=== PATIENT | male | born 1975 | race Caucasian/White ===

== ENCOUNTER 2018-07-24 08:21 | Emergency (ER) | payer OTHER ==
[2018-07-24 08:33] VITALS: BP 153/93
--- NOTE | 2018-07-24 09:36 | XRAY Report ---
Reason: 5th digit injury Procedure Date: 07/24/2018 Accession Number: [id number] / [id number] Procedure: XR - Hand 3 View RT CPT Code: FULL RESULT: EXAM: RIGHT HAND RADIOGRAPHY EXAM DATE: 07/24/2018 09:21 AM. CLINICAL HISTORY: Fifth digit injury. COMPARISON: None. TECHNIQUE: 3 views. FINDINGS: Bones: Normal. No fractures or bone lesions. Joints: Alcove-neck flexion deformity of the fifth digit phalanges is noted. No subluxation. Soft Tissues: Normal. No soft tissue swelling. IMPRESSION: No fracture or dislocation. Positional swan-neck deformity of the fifth ray suggestive of a ligamentous injury. RADIA
--- NOTE | 2018-07-24 09:45 | ED Physician Documentation ---
PD HPI UPPER EXT INJURY - Stated complaint Stated Complaint: R FINGER INJ - Chief complaint Chief Complaint: Ext Problem - History obtained from History obtained from: Patient - History of Present Illness Location: Right, Finger (5th) Type of injury: Blunt / blow Where injury occurred: Other (gym) Timing - onset: Last night Timing - duration: Days (1) Timing - details: Abrupt onset, Still present Improved by: Rest, Immobilization Worsened by: Moving, Palpating Associated symptoms: No: Weakness, Numbness, Tingling Contributing factors: No: Anticoagulated Similar symptoms before: Has not had sx before Recently seen: Not recently seen - Additonal information Additional information: 43-year-old male was playing basketball with his daughter last night when the basketball hit the tip of his right fifth digit and bent it. He is not able to straighten the tip of his finger out at all. He has very little pain associated with this. Review of Systems Constitutional: denies: Fever Eyes: denies: Decreased vision Respiratory: denies: Cough GI: denies: Vomiting PD PAST MEDICAL HISTORY - Past Surgical History Ortho: Other - Present Medications Home Medications: Ambulatory Orders Medication Instructions Recorded Confirmed No Known Home Medications 07/24/18 07/24/18 - Allergies Allergies/Adverse Reactions: Allergies Allergy/AdvReac Type Severity Reaction Status Date / Time No Known Drug Allergies Allergy Verified 07/24/18 08:33 - Social History Does the pt smoke?: No Smoking Status: Never smoker Does the pt drink ETOH?: No Does the pt have substance abuse?: No PD ED PE NORMAL - Vitals Vital signs reviewed: Yes (hypertensvie) - General General: Alert and oriented X 3, No acute distress, Well developed/nourished - HEENT HEENT: Atraumatic, PERRL, EOMI - Respiratory Respiratory: No respiratory distress - Derm Derm: Normal color, Warm and dry, No rash - Extremities Extremities: Other (There is deformitiy consistent with a Mallet finger to the right 5th digit. He is unable to extend the finger. There is no swelling and minimal pain with direct palpation. Distal n/v is intact. 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 Positional swan-neck deformity of the fifth digit suggestive of a ligamentous injury.), EMP read indepedently, See rad report PD MEDICAL DECISION MAKING - ED course Complexity details: reviewed results, re-evaluated patient, considered differential, d/w patient ED course: 43-year-old male with contusion to his right fifth digit has a mallet finger and we do not have the right size stack splint the patient placed the patient in and he is not encouraged to obtain this from the drugstore and wear it 14/01 for at least 1 month. Departure - Departure Disposition: 01 Home, Self Care Clinical Impression: Mallet finger of right hand Condition: Stable Instructions: ED Fx Mallet Finger Follow-Up: Ivan Garrett MD [Primary Care Provider] - [facility] [Provider Group] Comments: wear the stack splint for 6 weeks continuously.
== END 2018-07-24 10:06 | disposition home or self-care (01) ==
LOC: ED 08:21
DX: M20.011 Mallet finger of right finger(s) (principal)
CPT/HCPCS: 99282

== ENCOUNTER 2019-04-12 12:32 | Emergency (ER) | payer OTHER ==
--- NOTE | 2019-04-12 13:06 | ED Physician Documentation ---
PD HPI GI BLEED - Stated complaint Stated Complaint: BLOOD IN Stool - Chief complaint Chief Complaint: Abd Pain - History obtained from History obtained from: Patient - History of Present Illness Timing - onset: How many days ago (3-4) Timing - duration: Days (3-4) Timing - details: Abrupt onset (4 days ago noted an abrupt feeling of diarrheal type urgency and went to the bathroom and noted red blood output without any formed stool. He states he has had that happen several times daily over the last several days. He has noticed some mucus at times. He did not start with diarrhea itself but just the bloody output. He has had minimal lower abdominal cramping intermittently. No consistent pain fever nausea or vomiting. He denies rectal pain.), Still present, Intermittant Associated symptoms: Maroon stool, Abdominal pain (minimal cramping lower abd at times). No: Black/tarry stool, Diarrhea, Constipation Contributing factors: No: Sick contact, Bad food, Travel, Recent antibiotics, Aspirin use, NSAID use Improved by: No: Eating Worsened by: No: Eating Similar symptoms before: Has not had sx before Recently seen: Not recently seen Review of Systems Constitutional: denies: Fever, Chills, Myalgias Cardiac: denies: Chest pain / pressure, Palpitations Respiratory: denies: Dyspnea, Cough GI: reports: Bloody / black stool (purple/dark red blood; no rectal tenderness.). denies: Abdominal Swelling, Nausea, Vomiting, Constipation, Diarrhea Neurologic: denies: Generalized weakness, Near syncope PD PAST MEDICAL HISTORY - Past Medical History Cardiovascular: None Respiratory: None Endocrine/Autoimmune: None GI: None Other Past Medical History: G6PD - Past Surgical History Ortho: Other - Present Medications Home Medications: Ambulatory Orders Medication Instructions Recorded Confirmed Amox/Clav 875/125 [Augmentin] 1 each PO Q12H #10 tablet 04/12/19 Naproxen 375 mg PO BID #20 tablet 04/12/19 - Allergies Allergies/Adverse Reactions: Allergies Allergy/AdvReac Type Severity Reaction Status Date / Time No Known Drug Allergies Allergy Verified 04/12/19 12:38 - Social History Does the pt smoke?: No Smoking Status: Never smoker Does the pt drink ETOH?: No Does the pt have substance abuse?: No PD ED PE NORMAL - Vitals Vital signs reviewed: Yes - General General: Alert and oriented X 3, No acute distress, Well developed/nourished - Neck Neck: Supple, no meningeal sign, No adenopathy - Cardiac Cardiac: RRR, No murmur - Respiratory Respiratory: Clear bilaterally - Abdomen Abdomen: Normal bowel sounds, Soft, Non distended, No organomegaly, Other (mildly tender without guarding nor percussion tenderness in lower mid to left abdomen. ) - Back Back: No CVA TTP - Derm Derm: Normal color, Warm and dry - Neuro Neuro: Alert and oriented X 3, No motor deficit, Normal speech Results - Vitals Vitals: Vital Signs - 24 hr 04/12/19 04/12/19 12:35 15:19 Temperature 36.7 C Heart Rate 85 68 Respiratory 20 18 Rate Blood Pressure 131/85 H 121/78 O2 Saturation 98 99 Oxygen O2 Source Room air - Labs Labs: Microbiology 04/12/19 14:10 Campylobacter Antigen Assay - Final Stool Laboratory Tests 04/12/19 04/12/19 04/12/19 14:04 14:04 14:04 WBC 4.1 L RBC 4.87 Hgb 13.9 L Hct 42.3 MCV 86.9 MCH 28.5 MCHC 32.9 RDW 12.9 Plt Count 235 MPV 9.0 Neut # (Auto) 2.8 Lymph # (Auto) 1.0 L [place] # (Auto) 0.2 Eos # (Auto) 0.1 Baso # (Auto) 0.0 Absolute Nucleated RBC 0.00 Nucleated RBC % 0.0 ESR 3 Sodium 138 Potassium 4.1 Chloride 101 Carbon Dioxide 28 Anion Gap 9.0 BUN 19 Creatinine 1.2 Estimated GFR (MDRD) 65 L Glucose 101 H Calcium 9.1 Total Bilirubin 0.8 AST 17 ALT 18 Alkaline Phosphatase 41 L Total Protein 7.4 Albumin 4.7 Globulin 2.7 Albumin/Globulin Ratio 1.7 Lipase 29 - Rads (name of study) abd CT Radiology: Prelim report reviewed (diverticula present without obvious diverticulitis. No masses. ), See rad report PD MEDICAL DECISION MAKING - ED course Complexity details: reviewed results, re-evaluated patient (stable blood count. Consider mild diverrticulitis as cause. can treat that way. No overt -itis on CT. Will need colonoscopy to rule out other pathology. ), considered differential (presume lower bleed with likely diverticular. Consider tumors, polyps as well. No diarrhea preceeding, so unlikely infectious colitis. ), d/w patient, d/w home sales consultant (Dr. Wilks, who will see patient in office in next few days for follow up and colonoscopy. ) Departure - Departure Disposition: 01 Home, Self Care Clinical Impression: Lower GI bleeding, Diverticula of colon Condition: Stable Record reviewed to determine appropriate education?: Yes Instructions: ED Hematochezia Stable Follow-Up: Nas Wilks MD [Provider Admit Priv/Credential] - Ivan Garrett MD [Primary Care Provider] - Prescriptions: Amox/Clav 875/125 [Augmentin] 1 each PO Q12H #10 tablet Naproxen 375 mg PO BID #20 tablet Comments: You do have some diverticula on CT scan without any obvious diverticulitis. That said your bleeding may still be most likely from some inflammation around the diverticulum and we treated with anti-inflammatories and can go short course of an antibiotic in case of a mild infection. It would be appropriate to get a colonoscopy to ensure no other lesions or problems. No other lesions were seen on the CT scan but can be just intrinsic on the wall such as a polyp. I talked with our surgeon 's office who will follow up with you. Call his office tomorrow and let them know you are here in the ER and Dr. Tipton does want a close follow-up in the next couple of days to arrange colonoscopy. Return if significantly worse bleeding fevers pains or other concerns. Discharge Date/Time: 04/12/19 16:35
[2019-04-12] MEDS ORDERED: SODIUM CHLORIDE 0.9% 1,000 ML IV ONE (13:54)
[2019-04-12] MEDS ORDERED: IOVERSOL 320 100 ML VIAL IVP ONE ×2 (14:12→15:27)
[2019-04-12 14:20] LABS: BASOPHILS % (AUTO) 0.7 %; EOSINOPHILS # (AUTO) 0.1 10^3/uL (0.0-0.7); EOSINOPHILS % (AUTO) 1.7 %; HGB - HEMOGLOBIN 13.9 g/dL (14.0-18.0); LYMPHOCYTES % (AUTO) 24.9 %; MEAN CORPUSCULAR HEMOGLOBIN 28.5 pg (27.0-31.0); MEAN CORPUSCULAR HGB CONC 32.9 g/dL (32.0-36.0); MEAN CORPUSCULAR VOLUME 86.9 fL (80.0-94.0); MONOCYTES # (AUTO) 0.2 10^3/uL (0.0-1.0); MONOCYTES % (AUTO) 5.1 %; NEUTROPHILS # (AUTO) 2.8 10^3/uL (1.5-6.6); NEUTROPHILS % (AUTO) 67.1 %; PLT - PLATELET COUNT 235 10^3/uL (130-450); RED BLOOD COUNT 4.87 10^6/uL (4.70-6.10); RED CELL DISTRIBUTION WIDTH 12.9 % (12.0-15.0); WHITE BLOOD COUNT 4.1 x10^3/uL (4.8-10.8)
[2019-04-12 14:29] LABS: ALBUMIN 4.7 g/dL (3.2-5.5); ALBUMIN/GLOBULIN RATIO 1.7 (1.0-2.2); BILIRUBIN,TOTAL 0.8 mg/dL (0.2-1.0); CALCIUM 9.1 mg/dL (8.5-10.3); CREATININE 1.2 mg/dL (0.6-1.2); TOTAL PROTEIN 7.4 g/dL (6.7-8.2)
[2019-04-12 15:24] VITALS: BP 121/78
--- NOTE | 2019-04-12 15:40 | CT Report ---
Reason: lower GI bleedd; some lower abd tender Procedure Date: 04/12/2019 Accession Number: [id number] / [id number] Procedure: CT - Abdomen/Pelvis W CPT Code: FULL RESULT: EXAM: CT ABDOMEN AND PELVIS EXAM DATE: 04/12/2019 03:02 PM. CLINICAL HISTORY: Lower GI bleedd; some lower abd tender. COMPARISONS: None. TECHNIQUE: Routine helical CT imaging was performed through the abdomen and pelvis. IV contrast: OPTI 320 90ML. Enteric contrast: No. Reconstructions: Coronal and sagittal. In accordance with CT protocol optimization, one or more of the following dose reduction techniques were utilized for this exam: automated exposure control, adjustment of mA and/or KV based on patient size, or use of iterative reconstructive technique. FINDINGS: Lung Bases: Unremarkable. Liver: 3.3 x 3.1 cm segment 8 hypoattenuating liver lesion with suggestion of peripheral enhancement is likely a benign hemangioma. A few additional small scattered subcentimeter hypoattenuating liver lesions are seen that are indeterminate on single phase CT. Gallbladder/Bile Ducts: No radiopaque gallstones seen. No pericholecystic fluid or biliary dilation. Spleen: Normal. Pancreas: Normal. Adrenal Glands: Normal. Kidneys: Normal. No masses or hydronephrosis. Peritoneal Cavity/Bowel: Small hiatal hernia. Unremarkable stomach. Normal caliber small bowel loops without signs of wall thickening or hyperemia. No enlarged intraperitoneal or retroperitoneal lymph nodes seen. No pneumoperitoneum or ascites. No intra-abdominal fluid collections. Appendix is normal. Few scattered colonic diverticula seen without evidence for acute inflammation. Pelvic Organs: Unremarkable urinary bladder for degree of distention. Prostate and seminal vesicles appear within normal limits by CT. No enlarged pelvic or inguinal lymph nodes. Vasculature: No aneurysms or other significant abnormality. Bones: No significant abnormality. Other: Small fat-containing bilateral inguinal hernias noted. IMPRESSION: 1. No acute abnormality seen in the abdomen or pelvis. No CT findings to localize gastrointestinal bleeding. 2. Scattered colonic diverticulosis without evidence for acute diverticulitis. 3. 3.3 cm right hepatic mass is consistent with a benign hemangioma. For additional subcentimeter scattered hypoattenuating liver lesions are indeterminate, possibly small cysts or hemangiomas. Liver MRI could be obtained for additional characterization of these lesions if indicated. RADIA
[2019-04-12] MEDS ORDERED: NAPROXEN 250 MG TABLET PO STA (16:16)
[2019-04-12] MEDS: AMOX/CLAV 875 MG/125 MG TABLET PO STA (16:23)
== END 2019-04-12 16:35 | disposition home or self-care (01) ==
LOC: ED 12:32
DX: K57.31 Diverticulosis of large intestine without perforation or abscess with bleeding (principal)
CPT/HCPCS: 36415; 74177; 80053; 83690; 85025; 85651; 87045; 87046; 99283; 99284; A9270; Q9967

== ENCOUNTER 2019-07-28 12:51 | Outpatient (CLI) | payer OTHER ==
[~2019-07-28 12:51] MED LIST: GADOBUTROL 15 MMOL/15 ML VIAL ONE
[2019-07-28] MEDS ORDERED: GADOBUTROL 15 MMOL/15 ML VIAL IVP ONE (14:32)
--- NOTE | 2019-07-29 23:08 | MRI Report ---
Reason: ABNL ABD IMAGING LIVER LESIONS ON CT Procedure Date: 07/28/2019 Accession Number: [id number] / [id number] Procedure: MRI - Abdomen W/WO CPT Code: Final Report FULL RESULT: EXAM: MR ABDOMEN WITH AND WITHOUT CONTRAST (MR LIVER). EXAM DATE: 07/28/2019 02:34 PM. CLINICAL HISTORY: Abnormal abdominal imaging liver lesions on CT. COMPARISON: ABDOMEN/PELVIS W/ 04/12/2019 2:45 PM. TECHNIQUE: Multiplanar breath-hold T1, T2, and DWI sequences obtained through the abdomen on an MR scanner. Images obtained before and after administration of intravenous contrast. Multiphase postcontrast images obtained of the liver and abdomen. FINDINGS: Lung Bases: Unremarkable. Liver: Right liver hemangioma again noted measuring 34 x 29 x 32 mm. Remaining small hypodense foci seen on CT appear to correspond to benign cysts. No worrisome mass identified. No fatty infiltration. No vascular thrombosis. Biliary system: Gallbladder appears normal. No intrahepatic or extrahepatic biliary duct dilatation. Pancreas: No mass or duct dilatation seen. No peripancreatic inflammatory changes identified. Spleen: Normal. Kidneys: Normal. No hydronephrosis. Adrenals: Normal. Peritoneal cavity: Grossly unremarkable where seen. Study not designed to evaluate bowel. Other: None. IMPRESSION: Right liver 3.4 cm hemangioma and scattered tiny hepatic cysts. No worrisome hepatic mass. RADIA
== END 2019-07-28 12:52 | disposition home or self-care (01) ==
LOC: DI 12:51
PROVIDERS: ATTEND Student in an Organized Health Care Education/Training Program
DX: D18.03 Hemangioma of intra-abdominal structures (principal); K76.89 Other specified diseases of liver
CPT/HCPCS: 74183; A9585

== ENCOUNTER 2021-01-10 14:11 | Outpatient (CLI) | payer OTHER ==
--- NOTE | 2021-01-10 15:14 | SLEEP CARE CONSULTATION ---
Information from patient questionnaire entered by Maribel Linda. I have reviewed and concur with the information entered by Maribel Linda. This document represents the service I personally performed and the decisions made by me, Melanie Castro ARNP. History of Present Illness Service Date and Time: 01/10/2021 1411 Reason for Visit: New patient Chief Complaint: reports: Insomnia, Unrefreshed sleep, Snoring, Observed pauses in breathing, Fatigue, Frequent awakenings at night Date of Onset: 12 years Usual bedtime: 11 pm Time it takes to fall asleep: 30 minutes to several hours Snores at night: Yes Observed to quit breathing while asleep: Yes Sleeps alone due to snoring: No ( snores too) Number of times waking at night: 3-6 Reasons for waking at night: reports: Bathroom, Other (unknown reasons) Toss, Turn, or Twitch while sleeping: Yes Recalls having dreams: Yes Usually gets out of bed at: 6-7 am Feels refreshed in the morning: No Morning headache: No Sleepy or fatigued during the day: Yes Ever fallen asleep while driving: No (some drowsy driving, no accidents) Takes day naps: No Dreams during day naps: No Prior sleep studies: Yes Year and Where: 2014 - [facility] Additional HPI information: I had the pleasure of seeing FREDY CRUZ today regarding the possibility of him having a sleep disorder. His current complaints are fatigue, frequent night awakenings, insomnia, observed pauses in breathing, snoring and unrefreshed. He had a previous sleep study done in [place] and showed him with mild sleep apnea and was put on Lunesta. It made him have "fogged memory" and they took him off it. He takes Tylenol PM nightly to be able to get to sleep. He states his has told him he stops breathing at night and he snores loudly. He goes to sleep around 11-12 PM at night depending on when he took the Tylenol PM. He gets anywhere from 3-6 hours of sleep every night. He does not wake up feeling rested in the morning. 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 Patient is and lives in [place]. Have you smoked in the past 12 months: No Alcohol use: No Caffeine use: Yes Caffeine amount and frequency: 2-3 drinks daily Family History Family history of sleep disordered breathing: Yes Family Hx Sleep Apnea: Mother: Snoring, Sleep apnea - Untreated, Father: Sleep apnea - Treated Allergies and Home Medications Drug allergies reviewed: Yes (NKDA) Home medication list reviewed: Yes (started on cholesterol medication 2 weeks ago, ? name) Allergy and home medication list: OTC Tylenol PM Ibuprofen, prn Review of Systems Weight gain over past 5 years: 60 Weight loss over past 5 years: 40 Cardiovascular: reports: high blood pressure Gastrointestinal: reports: heartburn Urinary: reports: frequency Neurological: denies: headaches Psychiatric: denies: anxiety, depression, mood disorder Ear/Nose/Throat: reports: wisdom teeth removed. denies: injury to nose, tonsillectomy Endocrine: reports: thyroid disease Musculoskeletal: reports: joint pain, muscle pain or cramping Immunologic: denies: allergies to food or environment Physical Exam Blood Pressure: 146/94 Cuff size: long Heart Rate: 83 O2 Saturation: 97 Height: 5 ft 11 in Weight: 258 lb Body Mass Index: 35.9 BMI Classification: Obese Neck circumference: 16.5 (inches) Mouth and throat: narrow oropharynx Soft palate: long Hard palate: normal Uvula visualization: 50% Mallampati Class II Tongue: normal in size Tonsils: 1+ Neck: normal w/o lymphadenopathy or thyromegaly Heart: regular rate and rhythm Lungs: clear bilaterally Impression and Plan 1. Suspected Obstructive Sleep Apnea-Hypopnea Syndrome, as previously diagnosed and as suggested by a history of loud and irregular snoring, observed cessation of breath while asleep, frequent awakening during the night, unrefreshed sleep, and cognitive impairment. Narrow oropharynx and obesity are common predisposing factors for obstructive sleep apnea-hypopnea syndrome. I recommend proceeding to polysomnography to confirm the diagnosis and to assess severity. If the patient has significant sleep disordered breathing, a manual CPAP titration study will also be performed to find the optimal treatment pressure. I informed the patient of what the sleep studies involve and after some discussion, obtained agreement to proceed. The pathophysiology of obstructive sleep apnea-hypopnea syndrome was discussed with the patient and health risks of cardiovascular and cerebrovascular disease if not treated. [facility] brochure for obstructive sleep apnea-hypopnea syndrome given and reviewed. 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 Patient agreed to plan. * Schedule polysomnography +- manual CPAP titration study and return in 1-2 weeks after the study to discuss result and initiate therapy. * Avoid long distance driving or driving when feeling sleepy. * Avoid alcohol, sedative and muscle relaxant around bedtime. * Attempt to lose weight. * Review instructions provided by trained office staff on how to prepare for the sleep study. * Return for follow-up after sleep study completed. Counseling Topics: Weight loss health impact Visit Type: In Office Time Spent with Patient (minutes): 31 Provider Statement: I spent 100% of the Face to Face Visit with the patient with greater than 50% spent counseling the patient and coordination of care.
[2021-01-10 15:15] VITALS: BP 146/94
== END 2021-01-10 14:12 | disposition home or self-care (01) ==
LOC: SC 14:11
PROVIDERS: ATTEND Nurse Practitioner Family
DX: R06.83 Snoring (principal); R06.81 Apnea, not elsewhere classified; G47.8 Other sleep disorders; R41.89 Other symptoms and signs involving cognitive functions and awareness; E66.9 Obesity, unspecified; Z68.35 Body mass index [BMI] 35.0-35.9, adult
CPT/HCPCS: 99203; 99212

== ENCOUNTER 2021-01-13 14:02 | Outpatient (CLI) | payer OTHER | END 2021-01-13 14:03 | disposition home or self-care (01) | LOC: SC 14:02 | PROVIDERS: ATTEND Nurse Practitioner Family | DX: G47.33 Obstructive sleep apnea (adult) (pediatric) (principal); R09.02 Hypoxemia; Z68.36 Body mass index [BMI] 36.0-36.9, adult | CPT/HCPCS: 95806 ==

== ENCOUNTER 2021-02-02 15:48 | Outpatient (CLI) | payer OTHER ==
--- NOTE | 2021-02-02 16:17 | SLEEP CARE CONSULTATION ---
Information from patient questionnaire entered by Maribel Linda. I have reviewed and concur with the information entered by Maribel Linda. This document represents the service I personally performed and the decisions made by , Melanie Castro ARNP. History of Present Illness Service Date and Time: 02/02/2021 1548 Initial [place] Sleepiness Scale score: 8 (in 2020) Current [place] Sleepiness Scale score: 10 Additional HPI information: FREDY CRUZ returns for follow up and results of the recently performed home sleep study. I explained the pathophysiology behind obstructive sleep apnea. We then spent quite a bit of time discussing different treatment options. For mild obstructive sleep apnea, surgery and oral appliance are alternatives to nasal CPAP therapy but in moderate or severe cases, nasal CPAP is the most effective and reliable treatment. Because apnea is primarily in supine position, then positional management therapy could be effective. Methods discussed such as positioning with pillows, using a T-shirt with tennis balls in the back, and shown commercial products that have a pillow format on back to prevent supine sleep. I reviewed the impact of weight changes on sleep apnea and strongly recommended losing weight. After some discussion, the patient opted to go with the nasal CPAP therapy. Nasal autoCPAP set at 4-15 cmH20 will be ordered with rationale explained. A manual titration study will be ordered if unable to find optimal pressure with office adjustments. I explained how CPAP machine works with sample devices Respironics Dreamstation and [employer]aking[employer] Systems [id number] and what to expect when using the machine. Using CPAP every night in order to get used to it was emphasized. Patient advised to put CPAP mask on before getting into bed so as not to fall asleep without CPAP. To assist acclimation to CPAP use, it could also be used for a short time during day while reading or watching TV. The patient was instructed to call the CPAP supplier to discuss any mechanical problem that may occur. If the mask given is uncomfortable or is difficult to keep on through the night even with adjustment, contact the CPAP supplier as many will replace with another mask style if notified before 30 days. If snoring or perceives is not getting enough air or too much air from the machine, notify this office. AAS patient education PAP tips reviewed and given to patient. Patient does not drink alcohol. Patient was cautioned about risks of drowsy driving until sleepiness symptoms resolve. Sleep Study - Results Type of Sleep Study: Home sleep study Prior sleep studies: Yes Year and Where: 2015 - [facility] Sleep Study results: Physician Impression: The quality of the study is good. The length of the study is adequate (> 240 minutes). Please also see the tabulated and graphic data. 1. Obstructive Sleep Apnea-Hypopnea (ICD-10 G47.33), mild, with an AHI of 11.6 /hr and gamal SaO2 of 89%. During the study, the patient had 52 apneas (52 obstructive, 0 central, 0 mixed) and 41 hypopneas. The longest episode lasted 64.0 seconds. The respiratory events occurred more frequently during supine sleep (supine AHI was 27.9 and non-supine, 7.69). 2. Hypoxemia (ICD-10 R09.02), minimal, with the lowest oxygen saturation of 89 % and 0.2 minutes with SaO2 under 90%. Baseline oxygen saturation was normal (Average oxygen saturation was 96%). Allergies and Home Medications Home medication list reviewed: Yes (no changes) Review of Systems Review of systems same as previous: Yes (no changes) Physical Exam Heart Rate: 72 O2 Saturation: 98 Height: 5 ft 11 in Weight: 254 lb Body Mass Index: 35.4 BMI Classification: Obese Impression and Plan 1. Obstructive Sleep Apnea-Hypopnea Syndrome, mild, with lowest oxygen saturation of 89%. Obviously this is the cause of the patients symptoms of unrefreshed sleep, and excessive daytime sleepiness. Positive pressure therapy could benefit his overall health and reduce risk of cardiovascular and ce rebrovascular adverse events. As mentioned above, the patient will be started on nasal autoCPAP therapy with pressure set at 4-15 cmH2O. A manual titration study will be completed if unable to find optimal treatment pressure with office adjustments. Compliance guidelines also reviewed. A copy of compliance guidelines will be given for reference at check out. Because the apnea is more severe supine, I instructed to avoid sleeping supine using pillow positioning until able to start CPAP use. * Nasal auto CPAP therapy, pressure at 4-15 cm H2O. * Attempt to lose weight. * Avoid supine sleep until using CPAP. * The patient is again cautioned about driving until sleepiness completely resolves. * Return one month after CPAP obtained. I will assess response to therapy and compliance at that time. Counseling Topics: Weight loss health impact Visit Type: In Office Time Spent with Patient (minutes): 21 Provider Statement: I spent 100% of the Face to Face Visit with the patient with greater than 50% spent counseling the patient and coordination of care.
== END 2021-02-02 15:49 | disposition home or self-care (01) ==
LOC: SC 15:48
PROVIDERS: ATTEND Nurse Practitioner Family
DX: G47.33 Obstructive sleep apnea (adult) (pediatric) (principal)
CPT/HCPCS: 99212; 99213

== ENCOUNTER 2021-05-03 15:47 | Outpatient (CLI) | payer OTHER ==
--- NOTE | 2021-05-03 16:23 | SLEEP CARE CONSULTATION ---
Information from patient questionnaire entered by Ambrose Rivas MA. I have reviewed and concur with the information entered by Ambrose Rivas MA. This document represents the service I personally performed and the decisions made by , Melanie Castro ARNP. History of Present Illness Service Date and Time: 05/03/2021 1547 Previous diagnosis: Mild, Obstructive Sleep Apnea-Hypopnea Syndrome AHI: 11.6 Reason for follow up: first compliance (03/29) Equipment obtained from: [employer] (got initial supplies) Mask style: Full face Mask brand: Resmed ([id number], medium) Backup mask available: No (will keep old mask when replaced) Last cushion change: 1 month Prior sleep studies: Yes Year and Where: Celio Oneill MD Type of Sleep Study: Home sleep study HPI additional information: FREDY CRUZ was diagnosed to have mild, AHI 11.6, obstructive sleep apnea- hypopnea syndrome and returned today for CPAP therapy first compliance follow- up. Sleep Study - Results Type of Sleep Study: Home sleep study Prior sleep studies: Yes Year and Where: Celio Oneill MD CPAP Compliance Data - Data Reviewed with Patient Average duration of nightly device use: 6 hours 33 minutes Compliance rate %: 97 Current pressure setting (cmH2O): 4-15 (median 6.6, avg 9.6, max 11.0) Average residual AHI: 1.4 Central apnea: 0.8 Obstructive apnea: 0.5 Subjective Patient concerns: reports: mask leak noise (occasionally, better with adjustment), nasal congestion (has issues other than when on CPAP), dry mouth, nose, throat (dry mouth, 1-2 times a week). denies: aerophagia, mask discomfort, air blowing in eyes, condensation in mask/hose, epistaxis, other Observed to snore while using device: No Current pressure setting perceived as: too low On therapy, patient: reports: sleeping better, awakening more refreshed, being more awake and alert during the day, more rested overall. denies: drowsiness while driving Initial [place] Sleepiness Scale score: 8 (in 2020) Current [place] Sleepiness Scale score: 7 (in 2020) Allergies and Home Medications Home medication list reviewed: Yes (no changes) Review of Systems Review of systems same as previous: Yes (no changes) Physical Exam Vital signs obtained and entered by: Mary Rivas CMA AAMA Blood Pressure: 124/63 (left) Cuff size: wrist Heart Rate: 74 O2 Saturation: 97 (with mask) Height: 5 ft 11 in Weight: 271 lb (without boots) Body Mass Index: 37.8 BMI Classification: Obese Impression and Plan 1. Obstructive Sleep Apnea-Hypopnea Syndrome, mild, with good treatment compliance and good apnea control. On CPAP therapy, the patient has better sleep quality and is more rested overall. Patient is satisfied with current CPAP therapy and has significant improvement of his sleep apnea. He feels the pressure may be a little too low because he has been experiencing some nasal congestion. He had nasal congestion before using the CPAP but he thinks a little more pressure will help. He is also had a little bit of dry mouth occasionally. I explained to him that he probably needs a little more moisture and advised him to increase his humidity. Nasal congestion can be reduced with increasing the CPAP humidity as shown on sample device. The heated hose can be adjusted higher if condensation with higher humidity setting. Verbal instructions given on how to change humidity and heated hose settings with rationale explaining why to change. The patients pressure will be changed to autoCPAP 7-11 cmH20 to reflect pressure being used. Patient advised to contact me if pressure change is uncomfortable so that it can be adjusted. Goals for apnea control discussed. Patient voiced understanding and agreement. Patient's apnea severity and rationale for treatment to reduce apnea, improve sleep quality and reduce cardiovascular and cerebrovascular events was reviewed. Patient was encouraged to lose weight for their overall health and to reduce apneas. * Change auto CPAP pressure to 7-11 cmH2O * Notify me if snoring with mask or feeling that the pressure is too much or too little * Attempt to lose weight * Call this office if any problems using CPAP * Return for follow up in 1-2 months, or sooner if concerns arise Counseling Topics: Spare mask, Weight loss health impact Visit Type: In Office Time Spent with Patient (minutes): 21 Provider Statement: I spent 100% of the Face to Face Visit with the patient with greater than 50% spent counseling the patient and coordination of care.
[2021-05-03 16:24] VITALS: BP 124/63
== END 2021-05-03 15:48 | disposition home or self-care (01) ==
LOC: SC 15:47
PROVIDERS: ATTEND Nurse Practitioner Family
DX: G47.33 Obstructive sleep apnea (adult) (pediatric) (principal); E66.9 Obesity, unspecified; Z68.37 Body mass index [BMI] 37.0-37.9, adult; R09.81 Nasal congestion
CPT/HCPCS: 99212; 99213

== ENCOUNTER 2021-05-24 08:00 | Outpatient (CLI) | payer OTHER | END 2021-05-24 23:59 | disposition home or self-care (01) | LOC: LAB.N 08:00 | PROVIDERS: ATTEND Physician Assistant | DX: R05.3 Chronic cough (principal); Z20.822 Contact with and (suspected) exposure to COVID-19 ==

== ENCOUNTER 2021-07-04 15:19 | Outpatient (CLI) | payer OTHER ==
[2021-07-04 15:50] VITALS: BP 130/98
--- NOTE | 2021-07-04 15:50 | SLEEP CARE CONSULTATION ---
Information from patient questionnaire entered by Ambrose Rivas MA. I have reviewed and concur with the information entered by Ambrose Rivas MA. This document represents the service I personally performed and the decisions made by , Melanie Castro ARNP. History of Present Illness Service Date and Time: 07/04/2021 1519 Previous diagnosis: Mild, Obstructive Sleep Apnea-Hypopnea Syndrome AHI: 11.6 Reason for follow up: other (3 MONTH FOLLOW UP) Equipment obtained from: [employer] (needs to order supplies) Mask style: Full face (using wider/larger size) Backup mask available: No (will keep old mask when replaced) Last cushion change: 6 weeks Prior sleep studies: Yes Year and Where: Celio Oneill MD Type of Sleep Study: Home sleep study HPI additional information: FREDY CRUZ was diagnosed to have mild, AHI 11.6, obstructive sleep apnea- hypopnea syndrome and returned today for CPAP therapy 2 month with pressure change follow-up. Sleep Study - Results Type of Sleep Study: Home sleep study Prior sleep studies: Yes Year and Where: Celio Oneill MD CPAP Compliance Data - Data Reviewed with Patient Average duration of nightly device use: 7 HOURS 22 MINUTES Compliance rate %: 97 Current pressure setting (cmH2O): 7-11 (median 7.8, avg 9.9, max 10.6) Average residual AHI: 0.8 Central apnea: 0.5 Obstructive apnea: 0.2 Subjective Patient concerns: reports: air blowing in eyes, mask leak noise (better with bigger size mask cushion), other (WANTS A LONGER RAMP). denies: aerophagia, mask discomfort, condensation in mask/hose, nasal congestion, dry mouth, nose, throat, epistaxis Observed to snore while using device: No Current pressure setting perceived as: too high On therapy, patient: reports: sleeping better, awakening more refreshed, being more awake and alert during the day, more rested overall. denies: drowsiness while driving Initial [place] Sleepiness Scale score: 8 (in 2020) Current [place] Sleepiness Scale score: 5 (2021) Allergies and Home Medications Known drug allergies: No Drug allergies reviewed: Yes Home medication list reviewed: Yes (no changes) Allergy and home medication list: Still taking Tylenol 3 at night but has reduced to 2 pills at this time. Review of Systems Review of systems same as previous: Yes (no changes) Physical Exam Vital signs obtained and entered by: LEI LIMA Blood Pressure: 130/98 (LEFT) Cuff size: wrist Heart Rate: 79 O2 Saturation: 97 (WITH PAPER MASK) Height: 5 ft 11 in Weight: 276 lb Body Mass Index: 38.5 BMI Classification: Obese Impression and Plan 1. Obstructive Sleep Apnea-Hypopnea Syndrome, mild, with good treatment compliance and excellent apnea control. On CPAP therapy, the patient has better sleep quality and is more rested overall. He tried a larger size on his full face mask and it is fitting better with less leaks. He still will get some leaking if the pressure gets up to 12 cmH2O and will wake him up. I will adjust his pressure to 7-9 cmH2O which should still control his apneas and he will have less leaks. He voice understanding and agreement with plan. Patient's apnea severity and rationale for treatment to reduce apnea, improve sleep quality and reduce cardiovascular and cerebrovascular events was reviewed. Patient was encouraged to lose weight for their overall health and to reduce apneas. * Change auto CPAP pressure to 7-9 cmH2O * Notify me if snoring with mask or feeling that the pressure is too much or too little * Attempt to lose weight * Call this office if any problems using CPAP * Return for follow up in 3 months, or sooner if concerns arise Counseling Topics: Spare mask, Weight loss health impact Visit Type: In Office Time Spent with Patient (minutes): 21 Provider Statement: I spent 100% of the Face to Face Visit with the patient with greater than 50% spent counseling the patient and coordination of care.
== END 2021-07-04 15:20 | disposition home or self-care (01) ==
LOC: SC 15:19
PROVIDERS: ATTEND Nurse Practitioner Family
DX: G47.33 Obstructive sleep apnea (adult) (pediatric) (principal); E66.9 Obesity, unspecified; Z68.38 Body mass index [BMI] 38.0-38.9, adult
CPT/HCPCS: 99212; 99213

== ENCOUNTER 2022-04-03 14:39 | Outpatient (CLI) | payer OTHER ==
[2022-04-03 15:41] VITALS: BP 116/78
--- NOTE | 2022-04-03 15:41 | SLEEP CARE CONSULTATION ---
Information from patient questionnaire entered by Michelle Ricketts. I have reviewed and concur with the information entered by Michelle Ricketts. This document represents the service I personally performed and the decisions made by me, Melanie Castro ARNP. History of Present Illness Service Date and Time: 04/03/2022 1439 Previous diagnosis: Mild, Obstructive Sleep Apnea-Hypopnea Syndrome AHI: 11.6 Reason for follow up: other (9 MONTH F/U, LAST SEEN 06/2021, RESMED) Equipment type: CPAP (ResMed; morse 03/20/2021) Equipment obtained from: [employer] (getting supplies as needed) Mask style: Full face (using wider/larger size) Backup mask available: Yes (old mask) Prior sleep studies: Yes Year and Where: Celio Oneill MD Type of Sleep Study: Home sleep study HPI additional information: FREDY CRUZ was diagnosed to have mild, AHI 11.6, obstructive sleep apnea- hypopnea syndrome and returned today for CPAP therapy 9 month follow-up. Sleep Study - Results Type of Sleep Study: Home sleep study Prior sleep studies: Yes Year and Where: Celio Oneill MD CPAP Compliance Data - Data Reviewed with Patient Average duration of nightly device use: 6 hours, 22 minutes Compliance rate %: 85 (10/04/21 to 04/01/22; 158/180) Current pressure setting (cmH2O): 7-9 Average residual AHI: 0.6 Central apnea: 0.3 Obstructive apnea: 0.2 Subjective Missed days of use due to: reports: travel Patient concerns: denies: aerophagia, mask discomfort, air blowing in eyes, mask leak noise, condensation in mask/hose, nasal congestion, dry mouth, nose, throat, epistaxis Observed to snore while using device: No Current pressure setting perceived as: comfortable On therapy, patient: reports: sleeping better, awakening more refreshed, being more awake and alert during the day, more rested overall. denies: drowsiness wh ile driving Initial [place] Sleepiness Scale score: 8 (in 2020) Current [place] Sleepiness Scale score: 4 (04-03-22) Allergies and Home Medications Drug allergies reviewed: Yes (NKDA) Home medication list reviewed: Yes (no changes) Allergy and home medication list: Allergies No Known Drug Allergies Allergy (Verified 04/12/19 12:38) Review of Systems Review of systems same as previous: Yes (no change) Physical Exam Vital signs obtained and entered by: BIANCA JIANG Blood Pressure: 116/78 Heart Rate: 75 O2 Saturation: 97 Height: 5 ft 11 in Weight: 271 lb 4 oz Body Mass Index: 37.8 BMI Classification: Obese Impression and Plan 1. Obstructive Sleep Apnea-Hypopnea Syndrome, mild, with good treatment compliance and good apnea control. On CPAP therapy, the patient has better sleep quality and is more rested overall. Patient has significant improvement of their sleep apnea and are satisfied with current CPAP therapy. Patient denies problems with oral dryness, nasal congestion, epistaxis, skin irritation or aerophagia. Patient's apnea severity and rationale for treatment to reduce apnea, improve sleep quality and reduce cardiovascular and cerebrovascular events was reviewed. Patient brought in his ResMed Airmini to have me set the pressures. He tried to use it and the pressure was set too high. I was able to adjust the pressure accurately for him. He will follow up next year and I wrote an updated prescription for his supplies. 2. Obesity, unspecified. Currently patients BMI is 37.8. Obesity increases the risk of apnea, CPAP pressure requirements and overall health risks especially cardiovascular and diabetes. Thus patient is advised to continue to try to lose weight. Continue auto CPAP pressure at 7-9 cmH2O Update supplies Set AirMini to right pressures Notify me if snoring with mask or feeling that the pressure is too much or too little Attempt to lose weight Call this office if any problems using CPAP Return for follow up in 1 year, or sooner if concerns arise Counseling Topics: Spare mask, Weight loss health impact Visit Type: In Office Time Spent with Patient (minutes): 23 Provider Statement: I spent 100% of the Face to Face Visit with the patient with greater than 50% spent counseling the patient and coordination of care.
== END 2022-04-03 14:40 | disposition home or self-care (01) ==
LOC: SC 14:39
PROVIDERS: ATTEND Nurse Practitioner Family
DX: G47.33 Obstructive sleep apnea (adult) (pediatric) (principal); E66.9 Obesity, unspecified; Z68.37 Body mass index [BMI] 37.0-37.9, adult
CPT/HCPCS: 99212; 99213

== ENCOUNTER 2022-11-08 10:44 | Emergency (ER) | payer OTHER ==
[2022-11-08 11:30] LABS: RAPID STREP SCREEN Negative (Negative)
--- NOTE | 2022-11-08 11:32 | ED Physician Documentation ---
PD HPI URI - Stated complaint Stated Complaint: FEVER,DIARRHEA,SORE THROAT, - Chief complaint Chief Complaint: General - History obtained from History obtained from: Patient, Family - History of Present Illness Timing - onset: How many days ago (3) Timing duration: Days (3) Timing details: Abrupt onset, Still present Associated symptoms: Fever, Chills, Nasal congestion, Sore throat, Dry cough Contributing factors: Travel. No: Sick contact, Immunocompromised Similar symptoms before: Has not had sx before Recently seen: Not recently seen Review of Systems Constitutional: reports: Fever, Chills, Myalgias Nose: reports: Rhinorrhea / runny nose Throat: reports: Sore throat Respiratory: reports: Cough GI: reports: Nausea. denies: Abdominal Pain Skin: denies: Rash PD PAST MEDICAL HISTORY - Past Medical History Cardiovascular: None Respiratory: None Endocrine/Autoimmune: None GI: None - Past Surgical History Ortho: Other - Present Medications Home Medications: Ambulatory Orders Medication Instructions Recorded Confirmed Atorvastatin Calcium [Lipitor] See Rx Instructions .ROUTE .COMPLEX 04/03/22 11/08/22 Doxepin HCl [Silenor] 6 mg ORAL HS 11/08/22 11/08/22 - Allergies Allergies/Adverse Reactions: Allergies Allergy/AdvReac Type Severity Reaction Status Date / Time No Known Drug Allergies Allergy Verified 04/12/19 12:38 - Social History Does the pt smoke?: No Smoking Status: Never smoker Does the pt drink ETOH?: No Does the pt have substance abuse?: No PD ED PE NORMAL - Vitals Vital signs reviewed: Yes - General General: Alert and oriented X 3, No acute distress, Well developed/nourished - HEENT HEENT: Ears normal, Moist mucous membranes, Pharynx benign - Neck Neck: Supple, no meningeal sign, No adenopathy - Cardiac Cardiac: RRR, No murmur - Respiratory Respiratory: Clear bilaterally - Derm Derm: Normal color, Warm and dry - Neuro Neuro: Alert and oriented X 3, No motor deficit, Normal speech Results - Vitals Vitals: Vital Signs - 24 hr 11/08/22 11/08/22 11:04 12:01 Temperature 37.9 C 36.9 C Heart Rate 90 92 Respiratory 18 20 Rate Blood Pressure 127/91 H 151/87 H O2 Saturation 97 98 Oxygen O2 Source Room air - Labs Labs: Laboratory Tests 11/08/22 11/08/22 11:14 11:14 Nasal Adenovirus (PCR) NOT DETECTED Nasal B. parapertussis DNA (PCR) NOT DETECTED Nasal Coronavir 229E PCR NOT DETECTED Nasal Coronavir HKU1 PCR NOT DETECTED Nasal Coronavir NL63 PCR NOT DETECTED Nasal Coronavir OC43 PCR NOT DETECTED Nasal Enterovir/Rhinovir PCR NOT DETECTED Nasal Influenza B PCR NOT DETECTED Nasal Influenza A PCR NOT DETECTED Nasal Parainfluen 1 PCR NOT DETECTED Nasal Parainfluen 2 PCR NOT DETECTED Nasal Parainfluen 3 PCR NOT DETECTED Nasal Parainfluen 4 PCR NOT DETECTED Nasal RSV (PCR) NOT DETECTED Nasal B.pertussis DNA PCR NOT DETECTED Nasal C.pneumoniae (PCR) NOT DETECTED Rigoberto Human Metapneumo PCR NOT DETECTED Nasal M.pneumoniae (PCR) NOT DETECTED Nasal SARS-CoV-2 (PCR) DETECTED A Group A Strep Rapid Negative PD Medical Decision Making - ED course Complexity details: reviewed results (rapid strep negative. That was his main concern. Resp viral panel pending at time of discharge. Subsequently resulted COVID. Nursing called him to advise of result. ), considered differential, d/w patient Departure - Departure Disposition: 01 Home, Self Care Clinical Impression: Viral respiratory illness, COVID-19 Condition: Stable Record reviewed to determine appropriate education?: Yes Instructions: ED Viral Syndrome Follow-Up: MAXX BRADFORD PA [Primary Care Provider] - Comments: Your rapid strep test is negative. Clinically does not look like a strep throat. We do have a throat culture pending and I would wait to see what the results of that are as at this point it sounds more likely a viral illness. We will call you if there is any bacterial growth in the next day or 2 that would necessitate antibiotics. Otherwise sounding like a viral illness. We did do a respiratory panel. The result does not back yet but it does have a flulike kind of sound to your illness. At this point a do not believe antiviral medications would catch up to it enough to help with your symptoms. Therefore mostly relegated to treating symptoms with staying hydrated as you are and I would suggest a combination of some naproxen or ibuprofen 2-3 [id number] tablets 2 or 3 times daily with food to help with fever chills and aches. Add Tylenol every 4-6 hours if needed for pains. You can use [id number] Imodium if needed for the diarrhea. Otherwise a flulike illness typically last about 5 to 7 days. Discharge Date/Time: 11/08/22 12:08
[2022-11-08] MEDS ORDERED: IBUPROFEN 600 MG TABLET PO STA (11:51)
[2022-11-08] MEDS ORDERED: ACETAMINOPHEN 325 MG TABLET PO STA (11:52)
[2022-11-08] MEDS ORDERED: DIPHENOX/ATROPINE 2.5/0.025 MG TABLET PO STA (11:52)
[2022-11-08 12:02] VITALS: BP 151/87
[2022-11-08 12:26] LABS: B. PARAPERTUSSIS- RESP PCR PAN NOT DETECTED; B. PERTUSSIS- RESP PCR PANEL NOT DETECTED; C. PNEUMONIAE- RESP PCR PANEL NOT DETECTED; CORONAVIRUS 229E-RESP PCR NOT DETECTED; CORONAVIRUS HKU1-RESP PCR NOT DETECTED; CORONAVIRUS NL63-RESP PCR NOT DETECTED; CORONAVIRUS OC43-RESP PCR NOT DETECTED; HUMAN METAPNEUMOVIRUS NOT DETECTED; INFLUENZA A- RESP PCR PANEL NOT DETECTED; INFLUENZA B - RESP PCR PANEL NOT DETECTED; M. PNEUMONIAE- RESP PCR PANEL NOT DETECTED; PARAINFLUENZA VIRUS 1 NOT DETECTED; PARAINFLUENZA VIRUS 2 NOT DETECTED; PARAINFLUENZA VIRUS 3 NOT DETECTED; PARAINFLUENZA VIRUS 4 NOT DETECTED; RHINOVIRUS/ENTEROVIRUS NOT DETECTED; RSV- RESP PCR PANEL NOT DETECTED
[2022-11-08 12:27] LABS: SARS-CoV-2 -RESP PCR PANEL DETECTED
== END 2022-11-08 12:08 | disposition home or self-care (01) ==
LOC: ED 10:44
DX: U07.1 COVID-19 (principal)
CPT/HCPCS: 87070; 87430; 87633; 99283; A9270

== ENCOUNTER 2023-04-18 15:09 | Outpatient (CLI) | payer OTHER ==
--- NOTE | 2023-04-18 16:13 | Sleep Patient Instructions ---
Sleep Center Visit Summary - Patient Visit Information Reason for Visit: Annual visit - Patient Instructions Additional Instructions: You will continue with CPAP therapy with pressure set at 7-9 cmH2O. A supply prescription will be updated with your DME. We encourage you to continue to try to lose weight. Please follow up with the sleep care office in 1 year. - Clinic Information Contact: [facility] [address] [place] [address] [email or web address] T: [phone]
--- NOTE | 2023-04-18 16:15 | SLEEP CARE CONSULTATION ---
Information from patient questionnaire entered by Gini Thapa. I have reviewed and concur with the information entered by Gini Thapa. This document represents the service I personally performed and the decisions made by me, Melanie Castro ARNP. History of Present Illness Service Date and Time: 04/18/2023 1509 Previous diagnosis: Mild, Obstructive Sleep Apnea-Hypopnea Syndrome AHI: 11.6 Reason for follow up: annual (LAST SEEN 03/2022) Equipment type: CPAP (ResMed 11; morse 03/20/2021) Equipment obtained from: [facility] (getting supplies as needed) Mask style: Full face (using wider/larger size) Mask brand: Resmed Backup mask available: Yes (old mask) Last cushion change: 2 months Prior sleep studies: Yes Year and Where: Celio Oneill MD Type of Sleep Study: Home sleep study HPI additional information: FREDY CRUZ was diagnosed to have mild, AHI 11.6, obstructive sleep apnea- hypopnea syndrome and returned today for CPAP therapy annual follow-up. Sleep Study - Results Type of Sleep Study: Home sleep study Prior sleep studies: Yes Year and Where: Celio Oneill MD CPAP Compliance Data - Data Reviewed with Patient Average duration of nightly device use: 7 HRS 32 MINS Compliance rate %: 94 (04/16/22-04/15/23; 345/365 days used) Current pressure setting (cmH2O): 7-9 Average residual AHI: 0.6 Central apnea: 0.3 Obstructive apnea: 0.2 Average large leak: 8.6 L/min Compliance data discussion: Uses his [employer] travel CPAP when he is not at home. Subjective Missed days of use due to: reports: travel (uses travel machine when gone from home) Patient concerns: reports: nasal congestion (uses saline spray before bed). denies: aerophagia, mask discomfort, air blowing in eyes, mask leak noise, condensation in mask/hose, dry mouth, nose, throat, epistaxis Observed to snore while using device: No Current pressure setting perceived as: comfortable On therapy, patient: reports: sleeping better, awakening more refreshed, being more awake and alert during the day, more rested overall. denies: drowsiness while driving Initial [place] Sleepiness Scale score: 8 (in 2020) Current [place] Sleepiness Scale score: 3 (04/18/23) Allergies and Home Medications Known drug allergies: No Drug allergies reviewed: Yes Home medication list reviewed: Yes (no changes) Allergy and home medication list: Allergies No Known Drug Allergies Allergy (Verified 04/17/23 11:22) Review of Systems Review of systems same as previous: Yes (NO CHANGE) Physical Exam Vital signs obtained and entered by: GINI Stevenson MA Blood Pressure: 122/68 (LEFT ARM) Cuff size: regular Heart Rate: 66 O2 Saturation: 98 Height: 5 ft 11 in Weight: 252 lb 3.2 oz Weight change since last visit: 19 lb loss Body Mass Index: 35.2 BMI Classification: Obese Impression and Plan 1. Obstructive Sleep Apnea-Hypopnea Syndrome, mild, with good treatment compliance and good apnea control. On CPAP therapy, the patient has better sleep quality and is more rested overall. Patient has significant improvement of their sleep apnea and is satisfied with current CPAP therapy. Patient denies problems with oral dryness, nasal congestion, epistaxis, skin irritation or aerophagia. Patient's apnea severity and rationale for treatment to reduce apnea, improve sleep quality and reduce cardiovascular and cerebrovascular events was reviewed. 2. Obesity, unspecified. Currently patients BMI is 35.2. He has lost weight over the last year. Obesity increases the risk of apnea, CPAP pressure requirements and overall health risks especially cardiovascular and diabetes. Thus patient is advised to lose weight. * Continue auto CPAP pressure at 7-9 cmH2O * Update supply prescription * Notify me if snoring with mask or feeling that the pressure is too much or too little * Attempt to lose weight * Call this office if any problems using CPAP * Return for follow up in 12 months, or sooner if concerns arise Counseling Topics: Spare mask, Weight loss health impact Prescriptions: Device supplies Follow up with Sleep Care in: 1 year Visit Type: In Office Time Spent with Patient (minutes): 20 Provider Statement: I spent 100% of the Face to Face Visit with the patient with greater than 50% spent counseling the patient and coordination of care.
[2023-04-18 16:19] VITALS: BP 122/68; O2SAT 98
== END 2023-04-18 15:10 | disposition home or self-care (01) ==
LOC: SC 15:09
PROVIDERS: ATTEND Nurse Practitioner Family
DX: G47.33 Obstructive sleep apnea (adult) (pediatric) (principal); E66.9 Obesity, unspecified; Z68.35 Body mass index [BMI] 35.0-35.9, adult
CPT/HCPCS: 99212; 99213